=== PATIENT | male | born 1960 | race Caucasian/White ===

== ENCOUNTER 2020-04-20 08:10 | Outpatient (CLI) | payer BC ==
--- NOTE | 2020-04-20 09:12 | RAD ---
RIGHT HIP 2 VIEWS: HISTORY: Hip pain. FINDINGS: Mild degenerative change at the hip. No fracture or acute abnormality. IMPRESSION: Mild degenerative change. POS: AGW
== END 2020-04-20 08:11 | disposition home or self-care (01) ==
LOC: SCSRAD 08:10
PROVIDERS: ATTEND Family Medicine
DX: M25.551 Pain in right hip (principal); M16.11 Unilateral primary osteoarthritis, right hip